=== PATIENT | male | born 1965 | race Caucasian/White ===

== ENCOUNTER 2018-02-05 12:05 | Emergency (ER) | payer OTHER ==
[~2018-02-05] VITALS: Ht 167.6 cm; Wt 67.0 kg
[2018-02-05 12:10] VITALS: BP 128/64; PULSE 80; RESP 16; TEMP 98.5; O2SAT 97
--- NOTE | 2018-02-05 13:02 | PD ---
HPI Chief Complaint: Chest Pain Time Seen by Provider: 12:52 Travel History International Travel<30 days: No Contact w/Intl Traveler<30days: No Traveled to known affect area: No History of Present Illness HPI This 52-year-old male says he woke up this morning at 4 AM with right-sided chest pain. Pain is aggravated by movement and he noted an area in the costochondral region of the right anterior chest which is exquisitely tender. He does not recall any injury. He has not been short of breath. He says the pain is quite severe and prevented him from working today. He does not recall having pain like this before. There was no injury noted. The patient does smoke. His father at the age of 62 of cardiac illness [facility] Past Medical History Medical History: Denies Significant Hx Tetanus Vaccination: > 5 Years Influenza Vaccination: No Past Surgical History Surgical History: No Previous Surgery Social History Alcohol Use: Yes (BEER ~3X WEEK) Tobacco Use: Yes (1/2 PPD) Substance Use: No Allergies-Medications (Allergen,Severity, Reaction): Coded Allergies: Penicillins (Verified Allergy, Severe, hives, 02/05/18) Reported Meds & Prescriptions Reported Meds & Active Scripts Active No Active Prescriptions or Reported Medications Review of Systems General / Constitutional: No: Fever, Chills Eyes: No: Diploplia HENT: No: Headaches, Vertigo Cardiovascular: Positive: Chest Pain or Discomfort Respiratory: No: Cough, Shortness of Breath Gastrointestinal: No: Nausea, Vomiting Genitourinary: No: Urgency, Frequency Musculoskeletal: No: Myalgias, Arthralgias Skin: No Rash, No Itching Hematologic/Lymphatic: No: Easy Bruising Physical Exam Narrative GENERAL: Well-developed male SKIN: Focused skin assessment warm/dry. HEAD: Atraumatic. Normocephalic. EYES: Pupils equal and round. No scleral icterus. No injection or drainage. ENT: No nasal bleeding or discharge. Mucous membranes pink and moist. NECK: Trachea midline. No JVD. CARDIOVASCULAR: Regular rate and rhythm. No murmur appreciated. Tenderness in the right costochondral area which reproduces pain RESPIRATORY: No accessory muscle use. Clear to auscultation. Breath sounds equal bilaterally. GASTROINTESTINAL: Abdomen soft, non-tender, nondistended. Hepatic and splenic margins not palpable. MUSCULOSKELETAL: No obvious deformities. No clubbing. No cyanosis. No edema. NEUROLOGICAL: Awake and alert. No obvious cranial nerve deficits. Motor grossly within normal limits. Normal speech. PSYCHIATRIC: Appropriate mood and affect; insight and judgment normal. Data Data Last Documented VS Vital Signs Date Time Temp Pulse Resp B/P (MAP) Pulse Ox O2 Delivery O2 Flow Rate FiO2 02/05/18 12:29 98 Room Air 02/05/18 12:10 98.5 80 16 128/64 (85) Orders Orders Complete Blood Count With Diff (02/05/18 12:55) Comprehensive Metabolic Panel (02/05/18 12:55) Troponin I (02/05/18 12:55) Chest, Single Ap (02/05/18 12:55) Labs Laboratory Tests Test 02/05/18 13:00 White Blood Count 5.5 TH/MM3 Red Blood Count 4.72 MIL/MM3 Hemoglobin 14.8 GM/DL Hematocrit 44.3 % Mean Corpuscular Volume 93.8 FL Mean Corpuscular Hemoglobin 31.4 PG Mean Corpuscular Hemoglobin Concent 33.5 % Red Cell Distribution Width 12.4 % Platelet Count 194 TH/MM3 Mean Platelet Volume 8.9 FL Neutrophils (%) (Auto) 59.2 % Lymphocytes (%) (Auto) 28.9 % Monocytes (%) (Auto) 9.7 % Eosinophils (%) (Auto) 1.1 % Basophils (%) (Auto) 1.1 % Neutrophils # (Auto) 3.2 TH/MM3 Lymphocytes # (Auto) 1.6 TH/MM3 Monocytes # (Auto) 0.5 TH/MM3 Eosinophils # (Auto) 0.1 TH/MM3 Basophils # (Auto) 0.1 TH/MM3 CBC Comment DIFF FINAL Differential Comment Blood Urea Nitrogen 17 MG/DL Creatinine 0.91 MG/DL Random Glucose 93 MG/DL Total Protein 7.3 GM/DL Albumin 3.4 GM/DL Calcium Level 8.4 MG/DL Alkaline Phosphatase 72 U/L Aspartate Amino Transf (AST/SGOT) 14 U/L Alanine Aminotransferase (ALT/SGPT) 23 U/L Total Bilirubin 0.5 MG/DL Sodium Level 137 MEQ/L Potassium Level 4.0 MEQ/L Chloride Level 104 MEQ/L Carbon Dioxide Level 26.4 MEQ/L Anion Gap 7 MEQ/L Estimat Glomerular Filtration Rate 88 ML/MIN Troponin I LESS THAN 0.02 NG/ML MDM Medical Decision Making Medical Screen Exam Complete: Yes Emergency Medical Condition: Yes Medical Record Reviewed: Yes Differential Diagnosis Differential includes chest wall pain, coronary artery disease Narrative Course EKG shows normal sinus rhythm. Troponin is normal. Chest x-ray negative. This pain is reproducible with palpation and is aggravated by movement and appears most consistent with chest pain Diagnosis Primary Impression: Chest wall pain Additional Instructions: Take Aleve or Advil for pain Scripts No Active Prescriptions or Reported Meds Disposition: 01 DISCHARGE HOME Condition: Stable Nahum Garcia MD Feb 05, 2018 13:02
[2018-02-05 13:17] LABS: AUTOMATED NEUTROPHIL # 3.2 TH/MM3 (1.8-7.7); BASOPHIL # 0.1 TH/MM3 (0-0.2); BASOPHIL % 1.1 % (0.0-2.0); EOSINOPHIL # 0.1 TH/MM3 (0-0.4); EOSINOPHIL % 1.1 % (0.0-4.0); HEMATOCRIT 44.3 % (39.0-51.0); HEMOGLOBIN 14.8 GM/DL (13.0-17.0); LYMPH % 28.9 % (9.0-44.0); LYMPHOCYTE # 1.6 TH/MM3 (1.0-4.8); MEAN CELL VOLUME 93.8 FL (80.0-100.0); MEAN CORPUSCULAR HEMOGLOBIN 31.4 PG (27.0-34.0); MEAN CORPUSCULAR HGB CONC 33.5 % (32.0-36.0); MEAN PLATELET VOLUME 8.9 FL (7.0-11.0); MONO % 9.7 % (0.0-8.0); MONOCYTE # 0.5 TH/MM3 (0-0.9); NEUT % 59.2 % (16.0-70.0); PLATELET COUNT 194 TH/MM3 (150-450); RED BLOOD COUNT 4.72 MIL/MM3 (4.50-5.90); RED CELL DISTRIBUTION WIDTH 12.4 % (11.6-17.2); WHITE BLOOD COUNT 5.5 TH/MM3 (4.0-11.0)
[2018-02-05 13:22] LABS: CHLORIDE 104 MEQ/L (98-107); SODIUM (NA) 137 MEQ/L (136-145)
[2018-02-05 13:25] LABS: CALCIUM 8.4 MG/DL (8.5-10.1)
[2018-02-05 13:26] LABS: ALBUMIN 3.4 GM/DL (3.4-5.0); BICARBONATE 26.4 MEQ/L (21.0-32.0); BLOOD UREA NITROGEN 17 MG/DL (7-18); GLUCOSE,RANDOM 93 MG/DL (74-106)
[2018-02-05 13:29] LABS: ALT (GPT) 23 U/L (12-78); AST (GOT) 14 U/L (15-37); CREATININE 0.91 MG/DL (0.60-1.30); GLOMERULAR FILTRATION RATE 88 ML/MIN (>89)
--- NOTE | 2018-02-05 13:29 | RADRPT ---
EXAM DATE/TIME: 02/05/2018 13:13 [place] COMPARISON: No previous studies available for comparison. INDICATIONS : Right side chest pain. MEDICAL HISTORY : None. SURGICAL HISTORY : None. ENCOUNTER: Initial ACUITY: 1 day PAIN SCORE: 5/10 LOCATION: Right chest FINDINGS: Portable AP view of the chest demonstrates a normal-sized cardiac silhouette. No pleural effusion, ai rspace consolidation, or pneumothorax is identified. Bones and soft tissues demonstrate no acute find ing. There is thoracic and lumbar scoliosis. EKG lines overlie the patient. CONCLUSION: 1. No acute cardiopulmonary abnormality is identified. 2. Thoracic and lumbar scoliosis. Tye Duggan MD on February 05, 2018 at 13:25 Board Certified Radiologist. This report was verified electronically.
[2018-02-05 13:30] LABS: TOTAL BILIRUBIN ADULT 0.5 MG/DL (0.2-1.0)
[2018-02-05 13:31] LABS: TOTAL PROTEIN 7.3 GM/DL (6.4-8.2)
[2018-02-05 13:32] LABS: ALKALINE PHOSPHATASE 72 U/L (45-117)
[2018-02-05 13:34] LABS: TROPONIN I LESS THAN 0.02 NG/ML (0.02-0.05)
[2018-02-05 14:03] VITALS: BP 121/79; PULSE 71; RESP 16; O2SAT 97
--- NOTE | 2018-02-06 21:41 | EKG ---
Date Performed: 02/05/2018 Time Performed: 12:20:45 PTAGE: 52 years EKG: Sinus rhythm NORMAL ECG PREVIOUS TRACING : 06/11/1996 16.09 Since the previous tracing, no significant change noted DOCTOR: Ritchie Goodman Interpretating Date/Time 02/06/2018 21:38:26
== END 2018-02-05 14:20 | disposition home or self-care (01) ==
LOC: PHED 12:05
DX: R07.89 Other chest pain (principal); F17.210 Nicotine dependence, cigarettes, uncomplicated; Z88.0 Allergy status to penicillin
CPT/HCPCS: 71045; 80053; 84484; 85025; 93005; 99285